=== PATIENT | male | born 1970 | race Caucasian/White ===

== ENCOUNTER 2017-07-31 15:01 | Emergency (ER) | payer OTHER ==
[2017-07-31 15:17] VITALS: PULSE 76; RESP 20; TEMP 98.3; O2SAT 100
--- NOTE | 2017-07-31 16:02 | C.PDOC ---
History Of Present Illness 46 y/o male presents to the ED complaining of guerrero bite of the fingers of his left hand x 1 week. [place] in the cold and [place] last week. Later that afternoon he noted his fingers were guerrero bitten. Patient experienced a similar episode last year. He has history of electrocution (2003). 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 Denies any further medical complaints. Patient was seen in the office by Dr Euceda today and was sent to the ED for consultation with Dr Webster. PMD: Yoselin Euceda MD Time Seen by Provider: 07/31/17 15:31 Chief Complaint (Nursing): Finger,Hand,&Wrist History Per: Patient History/Exam Limitations: no limitations Onset/Duration Of Symptoms: Days (x7 days) Current Symptoms Are (Timing): Still Present Past Medical History Vital Signs: Last Vital Signs Temp 98.3 F 07/31/17 15:14 Pulse 76 07/31/17 15:14 Resp 20 07/31/17 15:14 BP 97/65 L 07/31/17 15:14 Pulse Ox 100 07/31/17 16:09 Other Surgeries: Right Arm Family History: States: Unknown Family Hx - Social History Hx Tobacco Use: No (Former Smoker) Hx Alcohol Use: Yes (Socially) Hx Substance Use: No - Immunization History Hx Tetanus Toxoid Vaccination: No Hx Influenza Vaccination: No Hx Pneumococcal Vaccination: No Review Of Systems Except As Marked, All Systems Reviewed And Found Negative. (As per HPI, otherwise negative) Skin: Positive for: Other (guerrero bite on left fingers) Physical Exam - Physical Exam Appears: Well, No Acute Distress Skin: Other (Left hand and most fingers are warm with good capillary refill, but finger tips are black and sharp line of demarcation was noted. Tenderness noted on 4th finger tip. Patient has contracture on left hand.) Eye(s): bilateral: Normal Inspection, PERRL, EOMI Nose: Normal Throat: Normal Neck: Normal Cardiovascular: Rhythm Regular, No Murmur Respiratory: Normal Breath Sounds, No Accessory Muscle Use Gastrointestinal/Abdominal: Normal Exam Back: Normal Inspection Extremity: Normal ROM Neurological/Psych: Oriented x3 ED Course And Treatment O2 Sat by Pulse Oximetry: 100 (RA) Pulse Ox Interpretation: Normal - Physician Consult Information Time Consulting Physician Contacted: 16:14 Physician Contacted: Luis Webster Jr. Outcome Of Conversation: Patient to be given frostbite wound care instructions and he will see him in the office this week. Medical Decision Making Medical Decision Making: Time: Plan: Scribe Attestation: Documented by Miryam Pierre acting as a scribe for Ally Lainez MD. Scribe Attestation: All medical record entries made by the Scribe were at my direction and personally dictated by me. I have reviewed the chart and agree that the record accurately reflects my personal performance of the history, physical exam, medical decision making, and the department course for this patient. I have also personally directed, reviewed, and agree with the discharge instructions and disposition. Disposition Counseled Patient/Family Regarding: Diagnosis, Need For Followup, Rx Given - Disposition Referrals: Luis Webster Jr., MD [Staff Provider] - Disposition: HOME/ ROUTINE Disposition Time: 16:15 Condition: STABLE Additional Instructions: Keep fingertips clean and covered with antibiotic ointment like Bacitracin or Neosporin. Take Motrin 2-3 tablets every 6 hours if needed for pain. Prescriptions: traMADol [Ultram] 50 mg PO TID PRN #14 tab PRN Reason: Pain, Severe (8-10) Instructions: Frostbite (ED) Forms: [email or web address] (French), Work Excuse - Clinical Impression Clinical Impression: Frostbite with tissue necrosis of left finger(s), initial encounter
[2017-07-31 16:38] VITALS: BP 110/67
== END 2017-07-31 16:38 | disposition home or self-care (01) ==
LOC: C.ER 15:01
DX: T34.532A Frostbite with tissue necrosis of left finger(s), initial encounter (principal); X31.XXXA Exposure to excessive natural cold, initial encounter; Z87.891 Personal history of nicotine dependence

== ENCOUNTER 2017-10-19 11:48 | Inpatient (IN) | payer OTHER ==
[2017-10-19 12:02] VITALS: RESP 20
[2017-10-19] MEDS ORDERED: Vancomycin 1 GM 1 GM/250 ML BAG IV STA (12:19)
[2017-10-19] MEDS ORDERED: Cefepime 1 GM in Sodium Chloride 0.9% 50 ML IVPB STA (12:20)
[2017-10-19] MEDS ORDERED: Cefepime IV 1 gm in Dextrose 1 GM/50 ML BAG IVPB STA (12:43)
--- NOTE | 2017-10-19 12:51 | C.PDOC ---
History Of Present Illness 47 y/o male sent by PMD presents to ED for evaluation of progressively worsening left thumb swelling and pain since (10/17). Patient states he was given antibiotic injection at PMD office and advised to come to ED for further evaluation. Patient has history of contraction to left upper extremity/ hand secondary to Electrocution in 2001. Patient denies drainage from area, fever/chills, numbness or injuries. Time Seen by Provider: 10/19/17 12:02 Chief Complaint (Nursing): Finger,Hand,&Wrist History Per: Patient History/Exam Limitations: no limitations Onset/Duration Of Symptoms: Days Current Symptoms Are (Timing): Still Present Quality: "Pain" Severity: Moderate Past Medical History Reviewed: Historical Data, Nursing Documentation, Vital Signs Vital Signs: Last Vital Signs Temp 99.7 F H 10/19/17 16:27 Pulse 84 10/19/17 16:27 Resp 20 10/19/17 16:27 BP 95/59 L 10/19/17 16:27 Pulse Ox 97 10/19/17 16:27 - Medical History PMH: No Chronic Diseases Surgical History: No Surg Hx Family History: States: No Known Family Hx - Social History Hx Tobacco Use: No (Former Smoker) Hx Alcohol Use: Yes Hx Substance Use: No - Immunization History Hx Tetanus Toxoid Vaccination: No Hx Influenza Vaccination: No Hx Pneumococcal Vaccination: No Review Of Systems Except As Marked, All Systems Reviewed And Found Negative. Constitutional: Negative for: Fever, Chills Musculoskeletal: Positive for: Hand Pain (swelling and redness left hand/thumb) Physical Exam - Physical Exam Appears: Well, Non-toxic, No Acute Distress Skin: Warm, Dry, Other (see extremity exam ) Head: Normacephalic Oral Mucosa: Moist Neck: Supple Cardiovascular: Rhythm Regular Respiratory: Normal Breath Sounds, No Rales, No Rhonchi, No Wheezing Extremity: Tenderness (to palpation diffusely to left thumb), Capillary Refill ( <2 seconds), Deformity (left hand contracted (chronic)), Swelling (moderate swelling and erythema of left thumb that extends to thenar eminence), Other (no obvious paronychia/felon/fluctuance) Pulses: Left Radial: Normal, Right Radial: Normal Neurological/Psych: Oriented x3 ED Course And Treatment - Laboratory Results Result Diagrams: 10/19/17 12:50 10/19/17 12:50 O2 Sat by Pulse Oximetry: 96 (RA) Pulse Ox Interpretation: Normal Progress Note: Plan: Blood work and Xray ordered and reviewed. Patient given IV NS bolus, IV Vancomycin and IV Cefepime. Spoke with Dr. Caldwell (admits for Dr. Euceda), agrees with admission to his service for left hand/thumb cellulitis, r/o tenosynovitis. - Physician Consult Information Physician Contacted: Jelani Drummond Outcome Of Conversation: Spoke with Dr. Drummond, will see patient on surgery consult. Recommends observe patient for 24-48 hours for improvement of symptoms , if no improvement may need OR. vice president of talent management called and will come see patient at his request. Disposition - Disposition Disposition: HOSPITALIZED Disposition Time: 13:53 Condition: STABLE - Clinical Impression Clinical Impression: Cellulitis of left hand - Scribe Statement The provider has reviewed the documentation as recorded by the Scribe Kennedy Vyas All medical record entries made by the Scribe were at my direction and personally dictated by me. I have reviewed the chart and agree that the record accurately reflects my personal performance of the history, physical exam, medical decision making, and the department course for this patient. I have also personally directed, reviewed, and agree with the discharge instructions and disposition. Decision To Admit - Pt Status Changed To: Hospital Disposition Of: Inpatient - Admit Certification Admit to Inpatient:: After my assessment, the patient will require hospitalization for at least two midnights. This is because of the severity of symptoms shown, intensity of services needed, and/or the medical risk in this patient being treated as an outpatient. - InPatient: Physician Admission Certification: I certify that this patient requires 2 or more midnights of care for the following reason:: see notes - . Bed Request Type: Regular Admitting Physician: Norberto Galindo Patient Diagnosis: Cellulitis of left hand
[2017-10-19 12:57] LABS: BASO % 0.3 % (0.0-2.0); EOS # 0.3 K/uL (0.0-0.7); EOS % 3.1 % (0.0-4.0); HEMOGLOBIN 13.8 g/dL (12.0-18.0); LYMPH % 11.9 % (20.0-40.0); MEAN CELL VOLUME 92.2 fL (80.0-94.0); MEAN CORPUSCULAR HEMOGLOBIN 31.6 pg (27.0-31.0); MEAN CORPUSCULAR HGB CONC 34.3 g/dL (33.0-37.0); MEAN PLATELET VOLUME 7.9 fL (7.2-11.7); MONO # 0.5 K/uL (0.0-0.8); MONO % 6.6 % (0.0-10.0); NEUT # 6.3 K/uL (1.8-7.0); NEUT % 78.1 % (50.0-75.0); RBC 4.35 Mil/uL (4.40-5.90); RED CELL DISTRIBUTION WIDTH 12.8 % (11.5-14.5); WHITE BLOOD COUNT 8.1 K/uL (4.8-10.8)
[2017-10-19] MEDS ORDERED: Vancomycin 1 gm/NS 200 ml 1 GM/200 ML BAG IVPB STA (13:03)
[2017-10-19 13:04] LABS: VENOUS BLOOD GAS BASE EXCESS 4.8 mmol/L (0.0-2.0); VENOUS BLOOD GAS PCO2 45 mmHg (40-60); VENOUS BLOOD GAS PO2 64 mm/Hg (30-55); VENOUS BLOOD PH 7.43 (7.32-7.43)
[2017-10-19 13:07] LABS: ALB/GLOB RATIO 1.1 (1.0-2.1); ALBUMIN 3.8 g/dL (3.5-5.0); ALT/SGPT 42 U/L (21-72); AST/SGOT 32 U/L (17-59); BLOOD UREA NITROGEN 15 mg/dL (9-20); CALCIUM 8.4 mg/dl (8.6-10.4); GFR AFRICAN-AMERICAN > 60; GFR NON-AFRICAN AMERICAN > 60
--- NOTE | 2017-10-19 15:53 | RAD ---
PROCEDURE: Left Hand Radiographs. HISTORY: left thumb/hand swelling pain COMPARISON: None. FINDINGS: BONES: No acute fracture. There are as absence of the distal aspect of the 1st distal phalanx as well as apparent soft tissue defect. Possible prior amputation. There is also possible amputation of 2nd distal phalanx. Evaluation is limited due to marked flexion deformity. JOINTS: Normal. No osteoarthritic changes. SOFT TISSUES: Normal. OTHER FINDINGS: None. IMPRESSION: No acute fracture. Absence of the distal aspect of the 1st distal phalanx as well as absence of a large portion of the 2nd distal phalanx. Flexion deformity of the interphalangeal joints.
--- NOTE | 2017-10-19 18:46 | CP.PCM.CON ---
History of Present Illness - History of Present Illness History of Present Illness: Hand Surgery Consult for Dr. Drummond This 47M with no PMH and a PSH of extensive bilateral upper extremity amputations secondary to electrocution presents with one day of left thenar 1st digit swelling and erythema. He reports that prior to this event he had limited mobility and limited sensation on the digit and that there is currently no change in the sensory/motor capabilities in the left upper extremity. He denies any recent trauma to the affected upper extremity. He denies fever, however reports chills. PMH: Dnies PSH: RUE amputation, multiple lower extremity debridments, left digital amputations ALL: NKDA Social: Denies ETOH, TObacco, or drugs Review of Systems - Review of Systems All systems: reviewed and no additional remarkable complaints except - Integumentary Integumentary: Erythema Past Patient History - Past Social History Smoking Status: Former Smoker - PSYCHIATRIC Hx Substance Use: No - SURGICAL HISTORY Hx Surgeries: Yes Hx Orthopedic Surgery: Yes (Right arm) - ANESTHESIA Hx Anesthesia: Yes Hx Anesthesia Reactions: No Meds Allergies/Adverse Reactions: Allergies Allergy/AdvReac Type Severity Reaction Status Date / Time No Known Allergies Allergy Verified 10/19/17 12:00 Physical Exam - Constitutional Appears: Non-toxic, No Acute Distress - Head Exam Head Exam: ATRAUMATIC, NORMOCEPHALIC - Eye Exam Eye Exam: EOMI - ENT Exam ENT Exam: Mucous Membranes Moist - Respiratory Exam Respiratory Exam: NORMAL BREATHING PATTERN - Cardiovascular Exam Cardiovascular Exam: +S1, +S2 - GI/Abdominal Exam GI & Abdominal Exam: Soft. absent: Tenderness - Extremities Exam Additional comments: RUE amputation distal to elbow, RUE distal digits amputation, thumb stump and thenar eminence erthematous without temperature changes, or fluctuance. Results - Vital Signs Recent Vital Signs: Last Vital Signs Temp 99.7 F H 10/19/17 16:27 Pulse 84 10/19/17 16:27 Resp 20 10/19/17 16:27 BP 95/59 L 10/19/17 16:27 Pulse Ox 96 10/19/17 18:37 - Labs Result Diagrams: 10/19/17 12:50 10/19/17 12:50 Labs: Laboratory Results - last 24 hr 10/19/17 10/19/17 10/19/17 12:50 12:50 13:01 WBC 8.1 RBC 4.35 L Hgb 13.8 Hct 40.2 MCV 92.2 MCH 31.6 H MCHC 34.3 RDW 12.8 Plt Count 176 MPV 7.9 Neut % (Auto) 78.1 H Lymph % (Auto) 11.9 L [place] % (Auto) 6.6 Eos % (Auto) 3.1 Baso % (Auto) 0.3 Neut # (Auto) 6.3 Lymph # (Auto) 1.0 [place] # (Auto) 0.5 Eos # (Auto) 0.3 Baso # (Auto) 0.0 pO2 64 H VBG pH 7.43 VBG pCO2 45 VBG HCO3 28.5 VBG Total CO2 31.3 H VBG O2 Sat (Calc) 95.9 H VBG Base Excess 4.8 H VBG Potassium 3.6 Glucose 129 H Lactate 2.2 H Sodium 139 138.0 Potassium 3.7 Chloride 100 103.0 Carbon Dioxide 26 Anion Gap 17 BUN 15 Creatinine 0.9 Est GFR ( Amer) > 60 Est GFR (Non-Af Amer) > 60 Random Glucose 128 H Calcium 8.4 L Total Bilirubin 0.3 AST 32 ALT 42 Alkaline Phosphatase 52 Total Protein 7.3 Albumin 3.8 Globulin 3.5 Albumin/Globulin Ratio 1.1 Venous Blood Potassium 3.6 Assessment & Plan - Assessment and Plan (Free Text) Assessment: 47M with LUE cellulitis. IV ABX Continue to observe Attempt medical treatment if refractory will consider OR D/W Dr. Bhanu Mcclure PGY2
[2017-10-19] MEDS: Piperacill/Tazo 3.375gm in Dex 3.375 GM/50 ML BAG IVPB SCH (20:08)
[2017-10-20] MEDS: Piperacill/Tazo 3.375gm in Dex 3.375 GM/50 ML BAG IVPB SCH ×4 (01:00→19:16)
--- NOTE | 2017-10-20 07:47 | CP.PCM.PN ---
Subjective - Date & Time of Evaluation Date of Evaluation: 10/20/17 Time of Evaluation: 07:45 - Subjective Subjective: Hand Surgery Progress Note for Dr. Drummond This 47M was seen and examined this Am at bedside no acute events overnight. He denies any pain in the affected digit. The erythema appears to have began receding since yesterday. Denies fevers chills chest pain nausea or vomiting. Objective - Vital Signs/Intake and Output Vital Signs (last 24 hours): Temp Pulse Resp BP Pulse Ox 97.7 F 80 20 105/68 97 10/20/17 00:00 10/20/17 06:00 10/20/17 06:00 10/20/17 06:00 10/20/17 06:00 Intake and Output: 10/20/17 10/20/17 06:59 18:59 Intake Total 600 Balance 600 - Medications Medications: Current Medications Acetaminophen (Tylenol 325mg Tab) 650 mg PO Q6 PRN PRN Reason: Fever >100.4 F Enoxaparin Sodium (Lovenox) 40 mg SC DAILY JESSE Piperacillin Sod/Tazobactam Sod (Zosyn 3.375 Gm Iv Premix) 3.375 gm in 50 mls @ 100 mls/hr IVPB Q6H JESSE PRN Reason: Protocol Last Admin: 10/20/17 06:14 Dose: 100 mls/hr Vancomycin HCl 500 mg/ Sodium (Chloride) 100 mls @ 67 mls/hr IVPB Q12H JESSE PRN Reason: Protocol Stop: 10/25/17 01:01 Last Admin: 10/20/17 01:30 Dose: 67 mls/hr - Labs Labs: 10/19/17 12:50 10/19/17 12:50 - Constitutional Appears: Non-toxic, No Acute Distress - Head Exam Head Exam: ATRAUMATIC, NORMOCEPHALIC - Eye Exam Eye Exam: EOMI - ENT Exam ENT Exam: Mucous Membranes Moist - Respiratory Exam Respiratory Exam: NORMAL BREATHING PATTERN - Cardiovascular Exam Cardiovascular Exam: +S1, +S2 - GI/Abdominal Exam GI & Abdominal Exam: Soft. absent: Tenderness - Extremities Exam Additional comments: RUE amputation distal to elbow, RUE distal digits amputation, thumb stump and thenar eminence erthematous without temperature changes, or fluctuance. Assessment and Plan - Assessment and Plan (Free Text) Assessment: 47M with CECILLE cellulitis. IV ABX Continue to observe Attempt medical treatment if refractory will consider OR D/W Dr. Bhanu Mcclure PGY2
[2017-10-20] MEDS: Enoxaparin 40 mg Syringe SC SCH (10:19)
--- NOTE | 2017-10-20 12:50 | CP.PCM.HP ---
Past Patient History - Past Medical History & Family History Past Medical History?: No - Past Social History Smoking Status: Former Smoker - MUSCULOSKELETAL/RHEUMATOLOGICAL Hx Falls: No - PSYCHIATRIC Hx Substance Use: No - SURGICAL HISTORY Hx Surgeries: Yes Hx Orthopedic Surgery: Yes (Right arm) - ANESTHESIA Hx Anesthesia: Yes Hx Anesthesia Reactions: No Meds Allergies/Adverse Reactions: Allergies Allergy/AdvReac Type Severity Reaction Status Date / Time No Known Allergies Allergy Verified 10/19/17 12:00 Results - Vital Signs Recent Vital Signs: Last Vital Signs Temp 98.5 F 10/20/17 07:46 Pulse 83 10/20/17 07:46 Resp 20 10/20/17 07:46 BP 97/58 L 10/20/17 07:46 Pulse Ox 97 10/20/17 07:46 - Labs Result Diagrams: 10/19/17 12:50 10/19/17 12:50 Labs: Laboratory Results - last 24 hr 10/19/17 10/19/17 10/19/17 12:50 12:50 13:01 WBC 8.1 RBC 4.35 L Hgb 13.8 Hct 40.2 MCV 92.2 MCH 31.6 H MCHC 34.3 RDW 12.8 Plt Count 176 MPV 7.9 Neut % (Auto) 78.1 H Lymph % (Auto) 11.9 L [place] % (Auto) 6.6 Eos % (Auto) 3.1 Baso % (Auto) 0.3 Neut # (Auto) 6.3 Lymph # (Auto) 1.0 [place] # (Auto) 0.5 Eos # (Auto) 0.3 Baso # (Auto) 0.0 pO2 64 H VBG pH 7.43 VBG pCO2 45 VBG HCO3 28.5 VBG Total CO2 31.3 H VBG O2 Sat (Calc) 95.9 H VBG Base Excess 4.8 H VBG Potassium 3.6 Glucose 129 H Lactate 2.2 H Sodium 139 138.0 Potassium 3.7 Chloride 100 103.0 Carbon Dioxide 26 Anion Gap 17 BUN 15 Creatinine 0.9 Est GFR ( Amer) > 60 Est GFR (Non-Af Amer) > 60 Random Glucose 128 H Calcium 8.4 L Total Bilirubin 0.3 AST 32 ALT 42 Alkaline Phosphatase 52 Total Protein 7.3 Albumin 3.8 Globulin 3.5 Albumin/Globulin Ratio 1.1 Venous Blood Potassium 3.6
--- NOTE | 2017-10-20 16:36 | CP.PCM.CON ---
History of Present Illness - History of Present Illness History of Present Illness: 47 y/o male sent by PMD presents to ED for evaluation of progressively worsening left thumb swelling and pain since (10/17). Patient states he was given antibiotic injection at PMD office and advised to come to ED for further evaluation. Patient has history of contraction to left upper extremity/ hand secondary to Electrocution in 2001. Frostbite injury to left hand reprted Patient denies drainage from area, fever/chills, numbness or injuries. PMH- amp right arm , electrocution- contractures Right hand , frostbite neuropathy Review of Systems - Review of Systems All systems: reviewed and no additional remarkable complaints except - Constitutional Constitutional: As Per HPI - EENT Eyes: absent: As Per HPI, Blind Spots, Blurred Vision, Change in Vision, Decreased Night Vision, Diplopia, Discharge, Dry Eye, Exophthalmos, Floaters, Irritation, Itchy Eyes, Loss of Peripheral Vision, Pain, Photophobia, Requires Corrective Lenses, Sees Flashes, Spots in Vision, Tunnel Vision, Other Visual Disturbances, Loss of Vision, Other Ears: absent: As Per HPI, Decreased Hearing, Ear Discharge, Ear Pain, Tinnitus, Abnormal Hearing, Disequilibrium, Dizziness, Other Nose/Mouth/Throat: absent: As Per HPI, Epistaxis, Nasal Congestion, Nasal Discharge, Nasal Obstruction, Nasal Trauma, Nose Pain, Post Nasal Drip, Sinus Pain, Sinus Pressure, Bleeding Gums, Change in Voice, Dental Pain, Dry Mouth, Dysphagia, Halitosis, Hoarsness, Lip Swelling, Mouth Lesions, Mouth Pain, Odynophagia, Sore Throat, Throat Swelling, Tongue Swelling, Facial Pain, Neck Pain, Neck Mass, Other - Respiratory Respiratory: absent: As Per HPI, Cough, Dyspnea, Hemoptysis, Dyspnea on Exertion , Wheezing, Snoring, Stridor, Pain on Inspiration, Chest Congestion, Excessive Mucous Production, Change in Mucous Color, Pain with Coughing, Other - Gastrointestinal Gastrointestinal: absent: As Per HPI, Abdominal Pain, Belching, Bloating, Change in Bowel Habits, Change in Stool Character, Coffee Ground Emesis, Constipation, Cramping, Diarrhea, Dyspepsia, Dysphagia, Early Satiety, Excessive Flatus, Fecal Incontinence, Heartburn, Hematemesis, Hematochezia, Loose Stools, Melena, Nausea, Odynophagia, Temesmus, Vomiting, Other - Genitourinary Genitourinary: absent: As Per HPI, Change in Urinary Stream, Difficulty Urinating, Dysuria, Flank Pain, Hematuria, Pyuria, Nocturia, Urinary Incontinence, Urinary Frequency, Urinary Hesitance, Urinary Urgency, Voiding Freq/Small Amts, Freq UTI, Hx Renal/Bladder Calculi, Hx /Renal Surgery, Bladder Distension, Other - Musculoskeletal Musculoskeletal: As Per HPI - Integumentary Integumentary: As Per HPI, Skin Pain, Wounds - Neurological Neurological: absent: As Per HPI, Abnormal Gait, Abnormal Hearing, Abnormal Movements, Abnormal Speech, Behavioral Changes, Burning Sensations, Confusion, Convulsions, Disequilibrium, Dizziness, Numbness, Focal Weakness, Frequent Falls , Headaches, Lack of Coordination, Loss of Vision, Memory Loss, Paresthesias, Radicular Pain, Restless Legs, Sensory Deficit, Syncope, Tingling, Tremor, Vertigo, Weakness, Other Visual Disturbances, Other - Psychiatric Psychiatric: absent: As Per HPI, Abnormal Sleep Pattern, Anhedonia, Anxiety, Auditory Hallucinations, Behavioral Changes, Change in Appetite, Change in Libido, Confusion, Depression, Difficulty Concentrating, Hallucinations, Homicidal Ideation, Hopelessness, Irritability, Memory Loss, Mood Swings, Panic Attacks, Paranoia, Suicidal Ideation, Visual Hallucinations, Tactile Hallucinations, Other - Endocrine Endocrine: absent: As Per HPI, Change in Body Appearance, Change in Libido, Cold Intolorance, Deepening of Voice, Excessive Sweating, Fatigue, Flushing, Heat Intolorance, Increase in Ring/Shoe/Hat Size, Palpitations, Polydipsia, Polyphagia, Polyuria, Other - Hematologic/Lymphatic Hematologic: absent: As Per HPI, Easy Bleeding, Easy Bruising, Lymphadenopathy, Other Past Patient History - Past Medical History & Family History Past Medical History?: No - Past Social History Smoking Status: Former Smoker - MUSCULOSKELETAL/RHEUMATOLOGICAL Hx Falls: No - PSYCHIATRIC Hx Substance Use: No - SURGICAL HISTORY Hx Surgeries: Yes Hx Orthopedic Surgery: Yes (Right arm) - ANESTHESIA Hx Anesthesia: Yes Hx Anesthesia Reactions: No Meds Allergies/Adverse Reactions: Allergies Allergy/AdvReac Type Severity Reaction Status Date / Time No Known Allergies Allergy Verified 10/19/17 12:00 - Medications Medications: Current Medications Acetaminophen (Tylenol 325mg Tab) 650 mg PO Q6 PRN PRN Reason: Fever >100.4 F Enoxaparin Sodium (Lovenox) 40 mg SC DAILY [facility] Last Admin: 10/20/17 10:19 Dose: 40 mg Piperacillin Sod/Tazobactam Sod (Zosyn 3.375 Gm Iv Premix) 3.375 gm in 50 mls @ 100 mls/hr IVPB Q6H JESSE PRN Reason: Protocol Last Admin: 10/20/17 12:35 Dose: 100 mls/hr Vancomycin HCl 500 mg/ Sodium (Chloride) 100 mls @ 67 mls/hr IVPB Q12H JESSE PRN Reason: Protocol Stop: 10/25/17 01:01 Last Admin: 10/20/17 12:36 Dose: 67 mls/hr Physical Exam - Constitutional Appears: Non-toxic, Chronically Ill - Head Exam Head Exam: NORMOCEPHALIC - Eye Exam Eye Exam: PERRL. absent: Scleral icterus - ENT Exam ENT Exam: Mucous Membranes Dry, Normal External Ear Exam - Neck Exam Neck exam: Negative for: Lymphadenopathy - Respiratory Exam Respiratory Exam: Decreased Breath Sounds, Clear to Auscultation Bilateral - Cardiovascular Exam Cardiovascular Exam: REGULAR RHYTHM, +S1, +S2 - GI/Abdominal Exam GI & Abdominal Exam: Diminished Bowel Sounds, Soft. absent: Tenderness - Rectal Exam Rectal Exam: Deferred - Exam Exam: NORMAL INSPECTION - Extremities Exam Extremities exam: Positive for: pedal pulses present. Negative for: calf tenderness, pedal edema, tenderness Additional comments: deformities left hand cellulitis left thumb - Back Exam Back exam: absent: CVA tenderness (L), CVA tenderness (R) - Neurological Exam Neurological exam: Alert, CN II-XII Intact, Oriented x3, Reflexes Normal - Psychiatric Exam Psychiatric exam: Normal Mood - Skin Skin Exam: Dry Results - Vital Signs Recent Vital Signs: Last Vital Signs Temp 98.5 F 10/20/17 07:46 Pulse 83 10/20/17 07:46 Resp 20 10/20/17 07:46 BP 97/58 L 10/20/17 07:46 Pulse Ox 97 10/20/17 07:46 - Labs Result Diagrams: 10/19/17 12:50 10/19/17 12:50 Assessment & Plan (1) Frostbite with tissue necrosis of left finger(s), initial encounter Status: Acute - Assessment and Plan (Free Text) Assessment: consider MRI- r/o OM cont iv antibiotics
[2017-10-21] MEDS: Piperacill/Tazo 3.375gm in Dex 3.375 GM/50 ML BAG IVPB SCH ×4 (00:16→18:33)
[2017-10-21] MEDS: Enoxaparin 40 mg Syringe SC SCH (09:49)
[2017-10-21 11:14] LABS: HEMOGLOBIN 14.3 g/dL (12.0-18.0); MEAN CELL VOLUME 91.9 fL (80.0-94.0); MEAN CORPUSCULAR HEMOGLOBIN 31.7 pg (27.0-31.0); MEAN CORPUSCULAR HGB CONC 34.5 g/dL (33.0-37.0); MEAN PLATELET VOLUME 8.4 fL (7.2-11.7)
[2017-10-21 11:21] LABS: BASO % 0.4 % (0.0-2.0); EOS # 0.4 K/uL (0.0-0.7); LYMPH # 1.3 K/uL (1.0-4.3); MONO # 0.9 K/uL (0.0-0.8); MONO % 9.9 % (0.0-10.0); NEUT # 6.4 K/uL (1.8-7.0); NEUT % 71.7 % (50.0-75.0); RBC 4.51 Mil/uL (4.40-5.90); RED CELL DISTRIBUTION WIDTH 12.4 % (11.5-14.5)
[2017-10-21 11:26] LABS: BLOOD UREA NITROGEN 13 mg/dL (9-20); GFR AFRICAN-AMERICAN > 60; GFR NON-AFRICAN AMERICAN > 60
--- NOTE | 2017-10-21 12:12 | CP.PCM.PN ---
Subjective - Date & Time of Evaluation Date of Evaluation: 10/21/17 Time of Evaluation: 06:55 - Subjective Subjective: Hand Surgery progress note. Dr. Drummond Pt seen and examined at bedside. No acute events overnight. No F/C. Reports improvement in left hand swelling and erythema. Pain improved moderately. No new complaints. Objective - Vital Signs/Intake and Output Vital Signs (last 24 hours): Temp Pulse Resp BP Pulse Ox 98.7 F 94 H 20 114/78 100 10/21/17 08:20 10/21/17 08:20 10/21/17 08:20 10/21/17 08:20 10/21/17 08:20 Intake and Output: 10/21/17 10/21/17 06:59 18:59 Intake Total 500 550 Balance 500 550 - Medications Medications: Current Medications Acetaminophen (Tylenol 325mg Tab) 650 mg PO Q6 PRN PRN Reason: Fever >100.4 F Enoxaparin Sodium (Lovenox) 40 mg SC DAILY [facility] Last Admin: 10/21/17 09:49 Dose: 40 mg Piperacillin Sod/Tazobactam Sod (Zosyn 3.375 Gm Iv Premix) 3.375 gm in 50 mls @ 100 mls/hr IVPB Q6H JESSE PRN Reason: Protocol Last Admin: 10/21/17 06:48 Dose: 100 mls/hr Vancomycin HCl 500 mg/ Sodium (Chloride) 100 mls @ 67 mls/hr IVPB Q12H JESSE PRN Reason: Protocol Stop: 10/25/17 01:01 Last Admin: 10/21/17 01:18 Dose: 67 mls/hr - Labs Labs: 10/21/17 06:39 10/21/17 11:10 - Constitutional Appears: Well, Non-toxic, No Acute Distress - Head Exam Head Exam: ATRAUMATIC, NORMAL INSPECTION, NORMOCEPHALIC - Eye Exam Eye Exam: EOMI, Normal appearance - ENT Exam ENT Exam: Mucous Membranes Moist - Respiratory Exam Respiratory Exam: NORMAL BREATHING PATTERN. absent: Accessory Muscle Use, Respiratory Distress - Cardiovascular Exam Cardiovascular Exam: RRR. absent: JVD - GI/Abdominal Exam GI & Abdominal Exam: Soft. 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 Left thumb with erythema and swelling noted. No induration. No fluctuance. Assessment and Plan - Assessment and Plan (Free Text) Assessment: 47yo M with Left thumb cellulitis Plan: - No indication for surgical intervention at this time - Continue Abx as per ID team - monitor for worsening Further recs as per Dr. Bhanu Bravo PGY1 surgery pager: [phone]
--- NOTE | 2017-10-21 13:07 | CP.PCM.PN ---
Subjective - Date & Time of Evaluation Date of Evaluation: 10/21/17 Time of Evaluation: 07:00 - Subjective Subjective: REFUSING TO STAY FOR FURTHER IMAGING AND iv ANTIBIOTICS LEFT HAND LESS SWOLLEN / RED Objective - Vital Signs/Intake and Output Vital Signs (last 24 hours): Temp Pulse Resp BP Pulse Ox 98.7 F 94 H 20 114/78 100 10/21/17 08:20 10/21/17 08:20 10/21/17 08:20 10/21/17 08:20 10/21/17 08:20 Intake and Output: 10/21/17 10/21/17 06:59 18:59 Intake Total 500 550 Balance 500 550 - Medications Medications: Current Medications Acetaminophen (Tylenol 325mg Tab) 650 mg PO Q6 PRN PRN Reason: Fever >100.4 F Enoxaparin Sodium (Lovenox) 40 mg SC DAILY [facility] Last Admin: 10/21/17 09:49 Dose: 40 mg Piperacillin Sod/Tazobactam Sod (Zosyn 3.375 Gm Iv Premix) 3.375 gm in 50 mls @ 100 mls/hr IVPB Q6H JESSE PRN Reason: Protocol Last Admin: 10/21/17 06:48 Dose: 100 mls/hr Vancomycin HCl 500 mg/ Sodium (Chloride) 100 mls @ 67 mls/hr IVPB Q12H JESSE PRN Reason: Protocol Stop: 10/25/17 01:01 Last Admin: 10/21/17 01:18 Dose: 67 mls/hr - Labs Labs: 10/21/17 06:39 10/21/17 11:10 - Constitutional Appears: Non-toxic, Chronically Ill - Head Exam Head Exam: NORMOCEPHALIC - Eye Exam Eye Exam: PERRL - ENT Exam ENT Exam: Mucous Membranes Dry - Neck Exam Neck Exam: absent: Lymphadenopathy - Respiratory Exam Respiratory Exam: Decreased Breath Sounds, Rhonchi - Cardiovascular Exam Cardiovascular Exam: REGULAR RHYTHM, +S1, +S2 - GI/Abdominal Exam GI & Abdominal Exam: Distended, Soft. absent: Tenderness - Rectal Exam Rectal Exam: Deferred - Exam Exam: NORMAL INSPECTION - Extremities Exam Extremities Exam: Tenderness. absent: Pedal Edema - Back Exam Back Exam: absent: CVA tenderness (L), CVA tenderness (R) - Neurological Exam Neurological Exam: Alert, Awake, CN II-XII Intact - Psychiatric Exam Psychiatric exam: Normal Mood - Skin Skin Exam: Dry Assessment and Plan (1) Frostbite with tissue necrosis of left finger(s), initial encounter Status: Acute - Assessment and Plan (Free Text) Assessment: CONT PO ZYVOX 600MG PO BID X 5 DAYS OUT PT IMAGING - MRI
--- NOTE | 2017-10-21 20:03 | CP.PCM.PN ---
Subjective - Date & Time of Evaluation Date of Evaluation: 10/21/17 Time of Evaluation: 20:03 Objective - Vital Signs/Intake and Output Vital Signs (last 24 hours): Temp Pulse Resp BP Pulse Ox 98.3 F 76 20 98/63 L 97 10/21/17 15:00 10/21/17 15:00 10/21/17 15:00 10/21/17 15:00 10/21/17 15:00 Intake and Output: 10/21/17 10/22/17 18:59 06:59 Intake Total 1000 Balance 1000 - Medications Medications: Current Medications Acetaminophen (Tylenol 325mg Tab) 650 mg PO Q6 PRN PRN Reason: Fever >100.4 F Enoxaparin Sodium (Lovenox) 40 mg SC DAILY [facility] Last Admin: 10/21/17 09:49 Dose: 40 mg Piperacillin Sod/Tazobactam Sod (Zosyn 3.375 Gm Iv Premix) 3.375 gm in 50 mls @ 100 mls/hr IVPB Q6H JESSE PRN Reason: Protocol Last Admin: 10/21/17 18:33 Dose: 100 mls/hr Vancomycin HCl 500 mg/ Sodium (Chloride) 100 mls @ 67 mls/hr IVPB Q12H JESSE PRN Reason: Protocol Stop: 10/25/17 01:01 Last Admin: 10/21/17 13:00 Dose: 67 mls/hr - Labs Labs: 10/21/17 06:39 10/21/17 11:10
[2017-10-22] MEDS: Piperacill/Tazo 3.375gm in Dex 3.375 GM/50 ML BAG IVPB SCH ×2 (00:46→06:21)
[2017-10-22 08:35] VITALS: BP 102/67; PULSE 75; TEMP 98.2; O2SAT 97
[2017-10-22] MEDS ORDERED: Enoxaparin 60 mg Syringe SC SCH (10:00)
--- NOTE | 2017-10-22 10:36 | CP.PCM.PN ---
Subjective - Date & Time of Evaluation Date of Evaluation: 10/22/17 Time of Evaluation: 06:00 - Subjective Subjective: Hand Surgery Progress note. Dr. Drummond Pt seen and examined at bedside. No acute events overnight. No N/V/D. No F/C. No new complaints. States that left hand swelling and thumb swelling is improving. Would like to be discharged home on PO abx today. Objective - Vital Signs/Intake and Output Vital Signs (last 24 hours): Temp Pulse Resp BP Pulse Ox 98.2 F 75 20 102/67 97 10/22/17 08:00 10/22/17 08:00 10/22/17 08:00 10/22/17 08:00 10/22/17 08:00 Intake and Output: 10/22/17 10/22/17 06:59 18:59 Intake Total 480 Balance 480 - Medications Medications: Current Medications Acetaminophen (Tylenol 325mg Tab) 650 mg PO Q6 PRN PRN Reason: Fever >100.4 F Enoxaparin Sodium (Lovenox) 40 mg SC DAILY [facility] Last Admin: 10/22/17 09:49 Dose: Not Given Piperacillin Sod/Tazobactam Sod (Zosyn 3.375 Gm Iv Premix) 3.375 gm in 50 mls @ 100 mls/hr IVPB Q6H JESSE PRN Reason: Protocol Last Admin: 10/22/17 06:21 Dose: 100 mls/hr Vancomycin HCl 500 mg/ Sodium (Chloride) 100 mls @ 67 mls/hr IVPB Q12H JESSE PRN Reason: Protocol Stop: 10/25/17 01:01 Last Admin: 10/22/17 00:54 Dose: 67 mls/hr - Labs Labs: 10/21/17 06:39 10/21/17 11:10 - Constitutional Appears: Well, Non-toxic, No Acute Distress - Head Exam Head Exam: ATRAUMATIC, NORMAL INSPECTION, NORMOCEPHALIC - Eye Exam Eye Exam: EOMI, Normal appearance - ENT Exam ENT Exam: Mucous Membranes Moist - Respiratory Exam Respiratory Exam: NORMAL BREATHING PATTERN. absent: Accessory Muscle Use, Respiratory Distress - Cardiovascular Exam Cardiovascular Exam: RRR. absent: JVD - GI/Abdominal Exam GI & Abdominal Exam: Soft. absent: Distended, Firm, Guarding, Rigid, Tenderness - Extremities Exam Additional comments: left hand deformed due to hx of electrocution. left thumb cellulitis improving. Erythema and swelling improving Assessment and Plan - Assessment and Plan (Free Text) Assessment: 47yo M with left thumb cellulitis Plan: - Continue Abx as per ID team - No indication for hand surgery intervention at this time - Continue to monitor for improvement Further recs as per Dr. Bhanu Bravo PGY1 surgery pager:[phone]
--- NOTE | 2017-10-22 12:24 | CP.PCM.PN ---
Subjective - Date & Time of Evaluation Date of Evaluation: 10/22/17 Time of Evaluation: 08:00 - Subjective Subjective: events noted seen by surgery possible d/c on po rx Objective - Vital Signs/Intake and Output Vital Signs (last 24 hours): Temp Pulse Resp BP Pulse Ox 98.2 F 75 20 102/67 97 10/22/17 08:00 10/22/17 08:00 10/22/17 08:00 10/22/17 08:00 10/22/17 08:00 Intake and Output: 10/22/17 10/22/17 06:59 18:59 Intake Total 480 Balance 480 - Labs Labs: 10/21/17 06:39 10/21/17 11:10 Assessment and Plan (1) Frostbite with tissue necrosis of left finger(s), initial encounter Status: Acute
--- NOTE | 2017-10-22 18:06 | CP.PCM.PN ---
Subjective - Date & Time of Evaluation Date of Evaluation: 10/22/17 Time of Evaluation: 10:00 - Subjective Subjective: Alert and orientedx3, left hand thump infection with improving swelling and pain. Objective - Vital Signs/Intake and Output Vital Signs (last 24 hours): Temp Pulse Resp BP Pulse Ox 98.2 F 75 20 102/67 97 10/22/17 08:00 10/22/17 08:00 10/22/17 08:00 10/22/17 08:00 10/22/17 08:00 Intake and Output: 10/22/17 10/22/17 06:59 18:59 Intake Total 480 Balance 480 - Labs Labs: 10/21/17 06:39 10/21/17 11:10 Assessment and Plan - Assessment and Plan (Free Text) Assessment: Patient is seen and examined. Left thump swelling and pain improved much. Insisting to go home today. Zyvox 600mg po bid x5 days filled from [facility] outpatient pharmacy. Advised to follow up with PMD in 1 week to possible MRI as outpatient. Verbalized understanding of the instructions given.
== END 2017-10-22 12:07 | disposition home or self-care (01) | DRG 603 ==
LOC: C.ER 11:48 → C.9E 13:53 → C.3T 14:29
PROVIDERS: ADMIT Internal Medicine Critical Care Medicine; ATTEND Internal Medicine Critical Care Medicine
DX: L03.012 Cellulitis of left finger (principal); T34.532A Frostbite with tissue necrosis of left finger(s), initial encounter; M24.542 Contracture, left hand; X31.XXXA Exposure to excessive natural cold, initial encounter; T75.4XXS Electrocution, sequela; Z87.891 Personal history of nicotine dependence; Z89.211 Acquired absence of right upper limb below elbow